=== PATIENT | female | born 1970 | race Caucasian/White ===

== ENCOUNTER 2019-10-18 15:34 | Emergency (ER) | payer OTHER, SELFPAY ==
--- NOTE | ~2019-10-18 | CT_ITS ---
EXAMINATION: CT abdomen pelvis w con DATE: 10/18/2019 18:31 INDICATION: Left-sided abdomen pain TECHNIQUE: Computed tomography (CT) of the abdomen and pelvis was performed with 100 cc Omnipaque 350 intravenous contrast. The dose-length product was 273.06 mGy-cm. Automated exposure control and iter ative reconstruction technique were employed. COMPARISON: CT dated 10/08/2015 FINDINGS: Lung bases unremarkable. Heart size normal. No pleural or pericardial effusion. The liver, spleen, pancreas, adrenal glands and kidneys are unremarkable. There is abnormal thickenin g of the colon at the splenic flexure with surrounding fluid and inflammation. There is fluid extendi ng into the left paracolic gutter. There are are fluid-filled distended small bowel loops which are n ot dilated. Small amount of free fluid in the pelvis. No free air. No evidence for abscess. No acute osseous abnormality. IMPRESSION: 1. Abnormally thickened colon at the splenic flexure with surrounding fluid and inflammatory change. Differential diagnosis includes infection and inflammatory bowel disease, although less favored. 2: Fluid-filled nondilated small bowel loops, likely ileus. Reviewed, dictated and finalized at location A. IMPRESSION: 1. Abnormally thickened colon at the splenic flexure with surrounding fluid and inflammatory change. Differential diagnosis includes infection and inflammator y bowel disease, although less favored. 2: Fluid-filled nondilated small bowel loops, likely ileus.
[2019-10-18 15:37] VITALS: BP 128/74; PULSE 105; RESP 18; TEMP 37.8; O2SAT 99
--- NOTE | 2019-10-18 17:33 | ED.ABDPAIN ---
HPI - Abdominal Pain General Chief Complaint: Abdominal Pain Stated Complaint: abd pain Time Seen by Provider: 10/18/19 17:21 Source: patient Mode of arrival: ambulatory Limitations: no limitations History of Present Illness HPI narrative: This patient is a 49 year old who presents for evaluation of upper abdominal pain. She developed pain to her right upper abdomen on Wednesday. Her pain has continued to gradually worsened, and it is has now migrated to her left upper abdominal pain. She has associated nausea but no vomiting or diarrhea. She also denies urinary complaints. She has not measured a fever at home , but she has been feeling like she has a fever. She was evaluated by her MATH SPECIALIST yesterday, and she has labs performed and a normal gallbladder ultrasound. Pain scale (0-10): 6 Related Data Allergies Allergy/AdvReac Type Severity Reaction Status Date / Time Penicillins Allergy Mild Rash Verified 10/18/19 17:33 Sulfa (Sulfonamide Allergy Mild Rash Verified 10/18/19 17:21 Antibiotics) ibuprofen Allergy Rash Verified 10/18/19 17:21 Review of Systems Review of Systems: All systems reviewed & are unremarkable except as noted in HPI and below Constitutional: Constitutional: Reports chills and Reports fever(s) Gastrointestinal: Gastrointestinal: Reports abdominal pain, Denies diarrhea, Reports nausea and Denies vomiting Genitourinary: Genitourinary: Denies hematuria, Denies nocturia and Reports flank pain Musculoskeletal: Musculoskeletal: Reports back pain PMFSH Past Medical History Medical History (Updated 10/18/19 @ 19:36 by Courtney Christensen MD) Patient denies medical problems Surgical History Surgical History (Updated 10/18/19 @ 17:33 by Courtney Christensen MD) H/O: hysterectomy Social History Social History (Updated 10/18/19 @ 17:34 by Courtney Christensen MD) Smoking status: Never smoker Alcohol intake: current Alcohol use details: occasional Exam Narrative: Exam Narrative: GENERAL: Well-appearing, well-nourished, and in no acute distress. HEAD: Normocephalic, atraumatic EYES: PERRLA and EOMI, conjunctiva clear without discharge THROAT:Mucous membranes moist, Oropharynx normal without erythema, exudate, peritonsillar swelling or fluctuance NECK: Supple, without lymphadenopathy or mass RESPIRATORY: No respiratory distress, Airway patent, Respirations non-labored, Clear to auscultation without rales, rhonchi or wheeze HEART: Regular rate and rhythm. No murmur heard. Normal peripheral pulses. ABDOMEN: Soft, LUQ, LLQ, nondistended, normal active bowel sounds. No masses. No rebound or guarding, No organomegaly. EXTREMITIES: No edema, normal strength with full range of motion. SKIN: Warm, dry, normal color without rash NEURO: Alert and oriented x3. CN 2-12 grossly intact. No focal deficits. PSYCH: Normal mood and affect. Course Reevaluation(s) Reevaluation #1: I Discussed with patient that CT shows left colon inflammation. She reports pain is better and she is comfortable with discharge home. 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 Date: 10/18/19 Time: 19:31 Vital Signs Vital signs: Vital Signs Temperature 100.1 F H 10/18/19 15:37 Pulse Rate 105 H 10/18/19 15:37 Respiratory Rate 18 10/18/19 15:37 Blood Pressure 128/74 10/18/19 15:37 Pulse Oximetry 99 10/18/19 15:37 Temperature 100.1 F H 10/18/19 15:37 Pulse Rate 105 H 10/18/19 15:37 Respiratory Rate 18 10/18/19 15:37 Blood Pressure 128/74 10/18/19 15:37 Pulse Oximetry 99 10/18/19 15:37 MDM - Abdominal Pain Lab Data Attestation: I reviewed the patient's lab results. Result diagrams: 10/18/19 17:40 10/18/19 17:40 Labs: Lab Results 10/18/19 10/18/19 10/18/19 Range/Units 17:35 17:40 17:40 WBC 10.6 H (4.5-10.0) K/mm3 RBC 4.48 (4.2-5.4) M/mm3 Hgb 15.0 (12.0-15.0) g/dL Hct 43.3 (37.0-47.0) % MCV 96.7 (80-100) fl MCH
[2019-10-18 17:44] LABS: Add Urine Microscopic? NO; Appearance Urine Clear (Clear); Bilirubin Urine Negative (Negative); Blood Urine Negative (Negative); Color Urine Yellow (Yellow); Glucose Urine UA Negative (Negative); Ketones Urine Negative (Negative); Leukocyte Esterase Ur Negative LEU/UL (Negative); Nitrate Urine Negative (Negative); Protein Urine Negative (Negative); Specific Grav Ur 1.016 (1.001-1.035); Urobilinogen Urine Negative mg/dL (<2.0)
[2019-10-18 17:46] LABS: Basophils Percent Auto 0.2 % (0.2-1.2); Eosinophils Percent Auto 0.1 % (0-4.4); Hematocrit 43.3 % (37.0-47.0); Immature Granulocyte Absolute 0.05 K/mm3 (0.00-0.031); Immature Granulocyte Percent A 0.5 % (0-0.5); Lymphocytes Absolute Auto 1.25 K/mm3 (0.9-3.2); Lymphocytes Percent Auto 11.8 % (18.3-44.2); Mean Corpuscular HGB Conc 34.6 g/dl (32-36); Mean Corpuscular Hemoglobin 33.5 pg (26-34); Mean Corpuscular Volume 96.7 fl (80-100); Mean Platelet Volume 9.6 fl (7.4-10.4); Monocytes Absolute Auto 0.8 K/mm3 (0.1-0.6); Monocytes Percent Auto 7.3 % (2.6-8.5); Neutrophils Absolute Auto 8.5 K/mm3 (1.3-6.7); Neutrophils Percent Auto 80.1 % (45.5-73.1); Platelet Count Result 183 k/mm3 (150-375); Red Blood Count 4.48 M/mm3 (4.2-5.4); White Blood Count 10.6 K/mm3 (4.5-10.0)
[2019-10-18 18:00] LABS: Alanine Aminotransferase 17 U/L (4-35); Albumin Level 4.5 g/dL (3.5-5.1); Alkaline Phosphatase 72 U/L (38-126); Anion Gap 8 mmol/L (8-16); Aspartate Amino Transferase 23 U/L (14-36); Bilirubin,Total 0.9 mg/dL (0.2-1.3); Blood Urea Nitrogen 10 mg/dL (7-17); Calcium 9.3 mg/dL (8.4-10.2); Carbon Dioxide 29 mmol/L (22-30); Chloride 97 mmol/L (98-107); Estimated CRCL calculation 58 ml/min; Estimated Glomerular Filt Rate > 60; Glucose 119 mg/dL (65-105); Lactic Acid Reflex 0.8 mmol/L (0.7-2.1); Lipase 28 U/L (23-300); Potassium 4.1 mmol/L (3.4-5.0); Sodium 134 mmol/L (137-145)
[2019-10-18] MEDS: SODIUM CHLORIDE 0.9% IV 1,000 ML 999 ML IV CONT (18:17)
[2019-10-18] MEDS: ONDANSETRON INJ 4 MG/2 ML VIAL IV PUSH (18:17)
[2019-10-18] MEDS: metroNIDAZOLE 250 MG TABLET 500 MG PO (19:33)
[2019-10-18] MEDS: CIPROFLOXACIN 500 MG TAB PO (19:33)
[2019-10-18 19:48] VITALS: BP 125/88; PULSE 79; RESP 18; TEMP 36.2; O2SAT 100
== END 2019-10-18 19:49 | disposition home or self-care (01) ==
PROVIDERS: Emergency Provider General Practice; PCP Internal Medicine Geriatric Medicine
DX: K52.9 Noninfective gastroenteritis and colitis, unspecified (principal)
CPT/HCPCS: 36415; 74177; 80053; 81003; 83605; 83690; 85025; 96374; 96375; 99284; A9270; J0131; J2405; J7030; Q9967